=== PATIENT | female | born 1990 ===

== ENCOUNTER 2018-10-27 22:05 | Emergency (ER) | payer SELFPAY ==
[2018-10-27 22:16] VITALS: PULSE 74; RESP 19; TEMP 98.3; O2SAT 99
--- NOTE | 2018-10-27 22:59 | ED PDOC ---
HPI: Chest Pain Time Seen by Provider: 10/27/18 22:28 Chief Complaint (Nursing): Chest Pain Chief Complaint (Provider): LEFT breast pain History Per: Patient History/Exam Limitations: no limitations Onset/Duration Of Symptoms: Days (3 months) Quality: "Pain" Additional Complaint(s): LEFT breast pain for 3 months associated with possible mass No fever/chills No skin changes No nipple discharge Pt reports that she hasn't breast fed in about a year PMD None Past Medical History Reviewed: Historical Data, Nursing Documentation, Vital Signs Vital Signs: Last Vital Signs Temp 98.3 F 10/27/18 22:13 Pulse 74 10/27/18 22:13 Resp 19 10/27/18 22:13 BP 111/57 L 10/27/18 22:13 Pulse Ox 99 10/27/18 22:13 - Medical History PMH: No Chronic Diseases - Surgical History Surgical History: - Family History Family History: States: No Known Family Hx - Social History Current smoker - smoking cessation education provided: No - Allergies Allergies/Adverse Reactions: Allergies Allergy/AdvReac Type Severity Reaction Status Date / Time No Known Allergies Allergy Verified 10/27/18 22:16 Review of Systems ROS Statement: Except As Marked, All Systems Reviewed And Found Negative Cardiovascular: Positive for: Chest Pain Skin: Negative for: Rash, Lesions Physical Exam - Reviewed Nursing Documentation Reviewed: Yes Vital Signs Reviewed: Yes - Physical Exam Appears: Positive for: Non-toxic, No Acute Distress Head Exam: Positive for: ATRAUMATIC, NORMOCEPHALIC Skin: Positive for: Warm, Dry Cardiovascular/Chest: Positive for: Regular Rate, Rhythm, Other (LEFT breast: firm muscular area upper medial quadrant with some fibrocystic changes, nontender, no induration of skin, no expressible nipple discharge). Negative for: Murmur Respiratory: Positive for: Normal Breath Sounds. Negative for: Respiratory Distress - ECG O2 Sat by Pulse Oximetry: 99 - Progress ED Course And Treament: Advised pt to f/u clinic for further management. No emergent treatment necessary at this time. Disposition - Clinical Impression Clinical Impression: Breast mass - Disposition Referrals: [facility] [Outside] - 10/28/18 ([facility] P[facility]) Disposition: Routine/Home Disposition Time: 22:53 Condition: STABLE Instructions: Common Breast Problems, Fibrocystic Breast Changes (DC) Print Language: SAO TOMEAN
[2018-10-27 23:18] VITALS: BP 115/62
--- NOTE | 2018-10-28 10:00 | CARD ---
APPROVED REPORT Date of service: 10/27/2018 EKG Measurement Heart [id number] <Conclusion> Normal sinus rhythm Normal ECG
== END 2018-10-27 22:53 | disposition home or self-care (01) ==
LOC: H.ER 22:05
DX: N63.0 Unspecified lump in unspecified breast (principal)